=== PATIENT | female | born 1955 | race Two or more races ===

== ENCOUNTER 2024-04-15 13:30 | Outpatient (RCR) | payer MEDICARE, MEDICAID, SELFPAY ==
--- NOTE | 2024-04-08 13:09 | PT.OIERPT ---
PT OP Initial Eval Patient Information Outpatient Physical Therapy Treatment Date: 04/08/24 Visit Reasons: right knee pain Medical Diagnosis: Right Knee OA Treatment Dx #1: Right Knee Pain Start of Care: 04/08/24 Date of Onset: 2019 Smoking Status Smoking Status: Never smoker Initial Assessment Subjective: Pt is a 68 y/o female reports of chronic right knee pain (6/10) worsening since 2019. Pt mentioned she has OA and will be pending knee MRI post physical therapy. Pt has limitation with standing, walking, chores, balance, squatting, kneeling, and performing recreational activities. Objective: Right Knee AROM: 0 deg to 120 deg with pain Right Knee MMTs: grossly 4-/5 Right Hip MMTs: grossly 3+/5 Knee Cap Mobility: hypomobile in all plane SLS: NT Assessment: Pt demonstrate right knee pain consistent with knee OA leading to difficulty with ADLs. Pt will attempt physical therapy if pain persist Pt will be refer back to provider for further consultation. Short Term and Water/Wastewater Project Engineer Goals 1) Increase right knee AROM WNL in 6 wks to be able to perform squatting activities 2) Decrease knee pain to 2/10 in 6 wks to be able to stand more than 30 mins 3) Increase right hip MMTs grossly to 4-/5 in 6 wks to be able to perform recreational activities 4) Increase SLS to 15 sec in 6 wks to be able to perform balance activities 5) Indep with HEP Treatment Plan 1) Manual Therapy 2) Therapeutic Activities 3) Therapeutic Exercises 4) Modalities (ice, heat) 5) Balance Training 6) Gait Training Frequency and Duration: 2 x wk for 6 wks Certification Dates: 04/08/24 to 07/06/24 Procedure Charges OP PT Eval Mod Complex 30 minutes: Yes
--- NOTE | 2024-04-11 11:33 | PTNOTE_ITS ---
PT Outpatient Daily Note OP Daily Note Outpatient Physical Therapy Treatment Date: 04/11/24 Visit Reasons: right knee pain Subjective: Pt reports R knee is doing ok today [facility] loosing her balance and her R hip and back are sore. Objective: Please see flow sheet for ther ex list. Assessment: Pt instructed on light ROM interventions, modified to accommodate for secondary LBP. Plan: Continue with POc. Length of Time (minutes) of Treatment: 30 Minutes Procedure Charges Therapeutic Exercise 30 minutes: Yes
--- NOTE | 2024-04-15 14:09 | PT.ODAYNRPT ---
PT Outpatient Daily Note OP Daily Note Outpatient Physical Therapy Treatment Date: 04/15/24 Visit Reasons: right knee pain Subjective: Pt reports knee is hurting more today. Objective: Please see flow sheet for ther ex list. Assessment: regressed interventions to accommodate reported pain. Plan: Please see flow sheet for ther ex list. Length of Time (minutes) of Treatment: 30 Minutes PALLIATIVE NURSE Service Modifier Method I: Divide the number of min of care provided by the PALLIATIVE NURSE/ALEJANDRA by the total min of care provided then multiply by 100. If greater than 11 percent modifier is required. Method II: Divide the total time of care provided to patient by 10 (round to the nearest whole number) and add 1 min. to set the minimum time requirement. If treatment total was 60 min., then 10% of 6 min PT CQ modifier applied: CQ Modifier applied Procedure Charges Therapeutic Exercise 30 minutes: Yes
== END 2024-05-03 23:59 | disposition home or self-care (01) ==
LOC: CPTX 13:30
PROVIDERS: PCP Nurse Practitioner Family; Referring Provider Nurse Practitioner Family; Visit Provider Nurse Practitioner Family
DX: M25.561 Pain in right knee (principal); R26.2 Difficulty in walking, not elsewhere classified; R26.89 Other abnormalities of gait and mobility; G89.29 Other chronic pain
CPT/HCPCS: 97110; 97162

== ENCOUNTER 2024-05-23 10:00 | Outpatient (RCR) | payer MEDICARE, MEDICAID, SELFPAY ==
--- NOTE | 2024-05-06 14:38 | PT.ODAYNRPT ---
PT Outpatient Daily Note OP Daily Note Outpatient Physical Therapy Treatment Date: 05/06/24 Visit Reasons: Pain in RT knee Subjective: Pt reports her R knee is doing better, notices less pain. Pt mentioned she has been compliant with HEP. Objective: Please see flow sheet for ther ex list. Assessment: Progression of interventions completed with no complaints. Plan: Continue with pOC. Length of Time (minutes) of Treatment: 30 Minutes SURGICAL ONCOLOGIST Service Modifier Method I: Divide the number of min of care provided by the SURGICAL ONCOLOGIST/HEAD IRRIGATOR by the total min of care provided then multiply by 100. If greater than 11 percent modifier is required. Method II: Divide the total time of care provided to patient by 10 (round to the nearest whole number) and add 1 min. to set the minimum time requirement. If treatment total was 60 min., then 10% of 6 min PT CQ modifier applied: CQ Modifier applied Procedure Charges Therapeutic Exercise 30 minutes: Yes
--- NOTE | 2024-05-20 16:12 | PT.ODAYNRPT ---
PT Outpatient Daily Note OP Daily Note Outpatient Physical Therapy Treatment Date: 05/20/24 Visit Reasons: Pain in RT knee Subjective: Pt's knee is about the same. Pt continues to have locking or buckling with standing. Objective: Please see flow chart for list of ther ex performed Assessment: 2 incidence with knee locking with side step exercises. Minimal progress towards goals noted. Plan: Prepare to d/c on the next session Length of Time (minutes) of Treatment: 30 Minutes Procedure Charges Therapeutic Exercise 30 minutes: Yes
--- NOTE | 2024-05-23 11:52 | PTNOTE_ITS ---
PT Outpatient Daily Note OP Daily Note Outpatient Physical Therapy Treatment Date: 05/23/24 Visit Reasons: Pain in RT knee Subjective: Pt c/o knee pain, shared R knee is really sore today, pt did a lot of sitting 2 days ago when she was a a . Objective: Please see flow sheet for ther ex list. Assessment: Regressed interventions to accommodate reported pain and soreness. Plan: Continue with pOC. Length of Time (minutes) of Treatment: 30 Minutes ORGANIC LAB WORKER Service Modifier Method I: Divide the number of min of care provided by the ORGANIC LAB WORKER/ALEJANDRA by the total min of care provided then multiply by 100. If greater than 11 percent modifier is required. Method II: Divide the total time of care provided to patient by 10 (round to the nearest whole number) and add 1 min. to set the minimum time requirement. If treatment total was 60 min., then 10% of 6 min PT CQ modifier applied: CQ Modifier applied Procedure Charges Therapeutic Exercise 30 minutes: Yes
== END 2024-06-03 23:59 | disposition home or self-care (01) ==
LOC: CPTX 10:00
PROVIDERS: PCP Nurse Practitioner Family; Referring Provider Nurse Practitioner Family; Visit Provider Nurse Practitioner Family
DX: M25.561 Pain in right knee (principal); R26.2 Difficulty in walking, not elsewhere classified; R26.89 Other abnormalities of gait and mobility; M17.11 Unilateral primary osteoarthritis, right knee; G89.29 Other chronic pain
CPT/HCPCS: 97110

== ENCOUNTER → 2024-06-13 | Outpatient (CLI) | payer MEDICARE, MEDICAID, SELFPAY ==
--- NOTE | 2024-06-13 09:28 | EKG_ITS ---
[facility] Test Date: 2024-06-13 Pat Name: SUSU ALDRICH Department: Room: - Gender: Female Conservation Enforcement Officer: ANTHONY : 1955 Requested By: Kamari Vaughn Order Number: [id number] Reading MD: Kamari Vaughn Measurements Intervals [place] Rate: 67 P: 65 AL: 158 QRS: 16 QRSD: 82 T: 34 QT: 389 QTc: 413 Interpretive Statements SINUS RHYTHM No previous ECG available for comparison /[id number]
== END | disposition home or self-care (01) ==
LOC: SEKG 09:13
PROVIDERS: PCP Nurse Practitioner Family; Referring Provider Ophthalmology; Visit Provider Ophthalmology
DX: Z01.818 Encounter for other preprocedural examination (principal); H25.811 Combined forms of age-related cataract, right eye
CPT/HCPCS: 93005